=== PATIENT | female | born 1940 | race Caucasian/White ===

== ENCOUNTER 2021-01-06 11:45 | Inpatient (IN) | payer MEDICARE ==
[~2021-01-06] VITALS: Ht 160 cm; Wt 96.2 kg
[2021-01-06 13:25] LABS: BASOPHILS % 0.5 % (0.0-1.0); EOSINOPHILS # (AUTO) 0.1 (0.0-0.4); EOSINOPHILS % 2.5 % (0.0-6.0); HEMATOCRIT 29.4 % (34.2-44.1); HEMOGLOBIN 9.3 g/dL (12.0-16.0); LYMPHOCYTES # (AUTO) 0.8 (1.0-3.2); LYMPHOCYTES % 18.8 % (18.0-39.1); MEAN CORPUSCULAR HEMOGLOBIN 31.6 pg (28-32); MEAN CORPUSCULAR HGB CONC 31.6 g/dL (31-35); MONOCYTES # (AUTO) 0.3 (0.2-0.8); MONOCYTES % 7.8 % (4.4-11.3); NEUTROPHILS # (AUTO) 2.8 (2.1-6.9); NEUTROPHILS % 70.1 % (38.7-80.0); PLATELET COUNT 137 x10e3/uL (140-360); RED BLOOD COUNT 2.94 x10e6/uL (3.6-5.1)
[2021-01-06 14:00] LABS: ALBUMIN/GLOBULIN RATIO 0.8 (0.8-2.0); ANION GAP 18.5 mmol/L (8-16); CALCIUM 8.6 mg/dL (8.4-10.2); CREATININE, SERUM 4.65 mg/dL (0.57-1.11)
[2021-01-06 14:11] LABS: POTASSIUM 5.5 mmol/L (3.5-5.1)
[2021-01-06] MEDS ORDERED: CEFTRIAXONE SOD 1 GM in SODIUM CHLORIDE 0.9% 50ML 50 ML IV ONE (14:15)
[2021-01-06] MEDS ORDERED: CEFTRIAXONE SOD 1 GM/50 ML BAG IV ONE (14:15)
[2021-01-06 18:24] VITALS: BP 100/70
[2021-01-06 20:00] VITALS: BP 120/51
[2021-01-06] MEDS ORDERED: DEXTROSE 50% SYRINGE 50 ML IV PRN (20:15)
[2021-01-06] MEDS: HYDROMORPHONE 1MG/1ML INJ IV PRN (20:47)
[2021-01-06 21:00] VITALS: BP 120/51
[2021-01-06] MEDS: INSULIN LISPRO 100 UNIT/1 ML 3ML VIAL SQ SCH (21:00)
[2021-01-06] MEDS ORDERED: VITAMIN E400 UNI1 PO (22:49)
[2021-01-06] MEDS ORDERED: VESICARE5 MG PO (22:49)
[2021-01-06] MEDS ORDERED: DIOVAN160 MG PO (22:49)
[2021-01-06] MEDS ORDERED: ANORO ELLIPTA1 EACH PO (22:49)
[2021-01-06] MEDS ORDERED: ALLOPURINOL100 MG PO (22:49)
[2021-01-06] MEDS ORDERED: FOLIC ACID0.4 MG PO (22:49)
[2021-01-06] MEDS ORDERED: LIPITOR20 MG PO (22:49)
[2021-01-06] MEDS ORDERED: PANTOPRAZOLE SO40 MG PO (22:49)
[2021-01-06] MEDS ORDERED: LOSARTAN POTAS100 MG PO (22:49)
[2021-01-06] MEDS ORDERED: TRICOR145 MG PO (22:49)
[2021-01-06] MEDS ORDERED: BUMETANIDE1 MG PO (22:49)
[2021-01-06] MEDS ORDERED: VITAMIN D250 MC1 PO (22:49)
[2021-01-06] MEDS ORDERED: LOVAZA1 GM PO (22:49)
[2021-01-06] MEDS ORDERED: METOPROLOL TART25 MG PO (22:49)
[2021-01-06] MEDS ORDERED: JANUVIA50 MG PO (22:49)
[2021-01-06] MEDS ORDERED: ASPIRIN81 MG PO (22:49)
[2021-01-06] MEDS ORDERED: HEPARIN SO5000 UNIT4 SC (22:49)
[2021-01-06] MEDS ORDERED: KLOR-CON M2020 MEQ PO (22:49)
[2021-01-06] MEDS ORDERED: FUROSEMIDE40 MG PO (22:49)
[2021-01-06] MEDS ORDERED: ACETAMINOPHEN325 M1 PO (22:49)
[2021-01-06] MEDS ORDERED: COREG12.5 MG PO (22:49)
[2021-01-06] MEDS ORDERED: ISOSORBIDE MONO30 MG PO (22:49)
[2021-01-06] MEDS ORDERED: NEURONTIN300 MG PO (22:49)
[2021-01-06] MEDS ORDERED: DOXYCYCLINE HY100 MG PO (22:49)
[2021-01-06] MEDS ORDERED: SUCRALFATE1 GM PO (22:49)
[2021-01-06] MEDS ORDERED: ALBUTEROL2.5 MG/3 M INH (22:49)
[2021-01-06] MEDS ORDERED: CRESTOR20 MG PO (22:49)
[2021-01-07] VITALS: BP 101/55
[2021-01-07] MEDS ORDERED: VANCOMYCIN 1GM/NS 250 ML 250 ML IV SCH (04:45)
[2021-01-07] MEDS ORDERED: CEFEPIME 1GM/NS 0.9% 50 ML 50 ML IV SCH (04:45)
[2021-01-07] MEDS ORDERED: CEFEPIME HCL 1GM 1 GM in SODIUM CHLORIDE 0.9% 50ML 50 ML IV SCH (05:00)
[2021-01-07] MEDS ORDERED: SODIUM CHLORIDE 0.9% 250ML 250 ML ONE (05:14)
[2021-01-07 07:03] LABS: BASOPHILS % 0.4 % (0.0-1.0); EOSINOPHILS % 0.7 % (0.0-6.0); HEMATOCRIT 25.3 % (34.2-44.1); HEMOGLOBIN 7.9 g/dL (12.0-16.0); LYMPHOCYTES # (AUTO) 0.7 (1.0-3.2); LYMPHOCYTES % 15.9 % (18.0-39.1); MEAN CORPUSCULAR HEMOGLOBIN 31.2 pg (28-32); MEAN CORPUSCULAR HGB CONC 31.2 g/dL (31-35); MONOCYTES # (AUTO) 0.4 (0.2-0.8); MONOCYTES % 8.1 % (4.4-11.3); NEUTROPHILS # (AUTO) 3.3 (2.1-6.9); NEUTROPHILS % 74.7 % (38.7-80.0); PLATELET COUNT 109 x10e3/uL (140-360); RED BLOOD COUNT 2.53 x10e6/uL (3.6-5.1); RED CELL DISTRIBUTION WIDTH 13.8 % (11.7-14.4)
[2021-01-07 07:24] LABS: ANION GAP 18.5 mmol/L (8-16); CALCIUM 8.3 mg/dL (8.4-10.2); CREATININE, SERUM 4.5 mg/dL (0.57-1.11); POTASSIUM 5.5 mmol/L (3.5-5.1)
[2021-01-07] MEDS: INSULIN LISPRO 100 UNIT/1 ML 3ML VIAL SQ SCH ×4 (07:30→21:00)
[2021-01-07] MEDS: CARVEDILOL 12.5 MG TAB PO SCH ×2 (08:00→17:00)
[2021-01-07 08:32] VITALS: BP 93/47
[2021-01-07] MEDS ORDERED: GABAPENTIN 300 MG CAP PO SCH (11:00)
[2021-01-07] MEDS: PANTOPRAZOLE SOD 40 MG TABEC PO SCH (11:20)
[2021-01-07] MEDS: SOLIFENACIN SUCCINATE 5 MG TAB PO SCH (11:20)
[2021-01-07] MEDS: ALLOPURINOL 100 MG TAB PO SCH (11:20)
[2021-01-07] MEDS: ISOSORBIDE MONONITRATE 30 MG TAB CR PO SCH ×2 (11:20→17:00)
[2021-01-07] MEDS: HYDROMORPHONE 1MG/1ML INJ IV PRN ×2 (11:30→22:59)
[2021-01-07 11:50] VITALS: BP 97/42
[2021-01-07] MEDS ORDERED: CEFTRIAXONE SOD 1 GM/50 ML BAG IV SCH (14:00)
[2021-01-07] MEDS ORDERED: INSULIN REGULAR, HUMAN 100 UNIT/1 ML 3ML VIAL IV ONE (14:30)
[2021-01-07] MEDS ORDERED: DEXTROSE 50% SYRINGE 50 ML IV ONE (14:30)
[2021-01-07] MEDS ORDERED: LIDOCAINE HCL 1% LOCAL INJ 20 ML VIAL ONE (15:29)
[2021-01-07] MEDS ORDERED: HEPARIN SOD (PORCINE) 1000 UNIT/ML SDV ONE (16:07)
[2021-01-07 16:13] VITALS: BP 92/58
[2021-01-07] MEDS: CLINDAMYCIN 600MG / 50ML 50 ML IV SCH ×2 (18:14→23:07)
[2021-01-07] MEDS ORDERED: SODIUM CHLORIDE 0.9% 1000ML 1,000 ML ONE (18:48)
[2021-01-07 20:22] VITALS: BP 112/57
[2021-01-07] MEDS ORDERED: CEFTRIAXONE SOD 1 GM in SODIUM CHLORIDE 0.9% 50ML 50 ML IV SCH (21:00)
[2021-01-07] MEDS: ATORVASTATIN 20 MG TAB PO SCH (22:51)
[2021-01-07 23:35] VITALS: BP 112/57
[2021-01-08] VITALS (8 sets, daily range): BP systolic 83–131; BP diastolic 45–67
[2021-01-08] MEDS: HYDROMORPHONE 1MG/1ML INJ IV PRN (04:53)
[2021-01-08] MEDS: CLINDAMYCIN 600MG / 50ML 50 ML IV SCH ×4 (05:16→20:00)
[2021-01-08 06:57] LABS: ALBUMIN 2.5 g/dL (3.5-5.0); ALBUMIN/GLOBULIN RATIO 0.7 (0.8-2.0); ANION GAP 15.8 mmol/L (8-16); CALCIUM 8.2 mg/dL (8.4-10.2); CREATININE, SERUM 3.69 mg/dL (0.57-1.11); POTASSIUM 4.8 mmol/L (3.5-5.1)
[2021-01-08] MEDS: INSULIN LISPRO 100 UNIT/1 ML 3ML VIAL SQ SCH ×4 (07:30→20:28)
[2021-01-08] MEDS: CARVEDILOL 12.5 MG TAB PO SCH ×2 (08:00→17:00)
[2021-01-08] MEDS: SOLIFENACIN SUCCINATE 5 MG TAB PO SCH (09:00)
[2021-01-08] MEDS: ALLOPURINOL 100 MG TAB PO SCH (09:00)
[2021-01-08] MEDS: PANTOPRAZOLE SOD 40 MG TABEC PO SCH (09:00)
[2021-01-08] MEDS: ISOSORBIDE MONONITRATE 30 MG TAB CR PO SCH ×2 (09:00→17:00)
[2021-01-08] MEDS: BALSAM PERU/CASTOR OIL 60 GM OINT...G. TP SCH ×2 (09:51→13:29)
[2021-01-08] MEDS: GUAIFENESIN 200 MG/10 ML UDC PO PRN ×2 (10:30→17:47)
[2021-01-08] MEDS: ONDANSETRON HCL INJ 2MG/ML 2ML 2 MG/ML VIAL IV PRN (10:30)
[2021-01-08] MEDS ORDERED: EPOETIN ALFA-EPBX 10,000 UNIT/ML VIAL SC SCH (12:00)
[2021-01-08] MEDS ORDERED: SODIUM CHLORIDE 0.9% 1000ML 1,000 ML ONE (16:44)
[2021-01-08] MEDS: ATORVASTATIN 20 MG TAB PO SCH (21:00)
[2021-01-08] MEDS: HYDROCODONE/APAP 10MG-325MG TAB PO PRN (22:42)
[2021-01-09] VITALS (8 sets, daily range): BP systolic 79–116; BP diastolic 30–69
[2021-01-09] MEDS: CLINDAMYCIN 600MG / 50ML 50 ML IV SCH ×5 (00:57→23:37)
[2021-01-09] MEDS: HYDROCODONE/APAP 10MG-325MG TAB PO PRN ×2 (03:59→12:28)
[2021-01-09 06:35] LABS: BASOPHILS % 0.8 % (0.0-1.0); EOSINOPHILS # (AUTO) 0.1 (0.0-0.4); EOSINOPHILS % 2.3 % (0.0-6.0); HEMATOCRIT 26.3 % (34.2-44.1); HEMOGLOBIN 8.1 g/dL (12.0-16.0); LYMPHOCYTES # (AUTO) 0.5 (1.0-3.2); LYMPHOCYTES % 13.3 % (18.0-39.1); MEAN CORPUSCULAR HEMOGLOBIN 31.4 pg (28-32); MEAN CORPUSCULAR HGB CONC 30.8 g/dL (31-35); MEAN CORPUSCULAR VOLUME 101.9 fL (81-99); MONOCYTES # (AUTO) 0.4 (0.2-0.8); MONOCYTES % 9.8 % (4.4-11.3); NEUTROPHILS # (AUTO) 2.9 (2.1-6.9); NEUTROPHILS % 73.5 % (38.7-80.0); PLATELET COUNT 103 x10e3/uL (140-360); RED BLOOD COUNT 2.58 x10e6/uL (3.6-5.1); RED CELL DISTRIBUTION WIDTH 14.1 % (11.7-14.4)
[2021-01-09 06:57] LABS: ANION GAP 13.5 mmol/L (8-16); CALCIUM 8.2 mg/dL (8.4-10.2); CREATININE, SERUM 2.76 mg/dL (0.57-1.11); POTASSIUM 4.5 mmol/L (3.5-5.1)
[2021-01-09] MEDS: INSULIN LISPRO 100 UNIT/1 ML 3ML VIAL SQ SCH ×4 (07:30→20:35)
[2021-01-09] MEDS: CARVEDILOL 12.5 MG TAB PO SCH ×2 (08:00→15:58)
[2021-01-09] MEDS: ISOSORBIDE MONONITRATE 30 MG TAB CR PO SCH ×2 (09:00→15:58)
[2021-01-09] MEDS: BALSAM PERU/CASTOR OIL 60 GM OINT...G. TP SCH (09:04)
[2021-01-09] MEDS: GUAIFENESIN 200 MG/10 ML UDC PO PRN (09:27)
[2021-01-09] MEDS: ONDANSETRON HCL INJ 2MG/ML 2ML 2 MG/ML VIAL IV PRN (09:27)
[2021-01-09] MEDS: ALLOPURINOL 100 MG TAB PO SCH (09:28)
[2021-01-09] MEDS: PANTOPRAZOLE SOD 40 MG TABEC PO SCH (09:28)
[2021-01-09] MEDS: SOLIFENACIN SUCCINATE 5 MG TAB PO SCH (09:28)
[2021-01-09] MEDS ORDERED: SODIUM CHLORIDE 0.9% 1000ML 1,000 ML IV ONE (20:15)
[2021-01-09] MEDS ORDERED: SODIUM CHLORIDE 0.9% 1000ML 1,000 ML ONE (20:19)
[2021-01-09] MEDS: ATORVASTATIN 20 MG TAB PO SCH (20:28)
[2021-01-10] VITALS (8 sets, daily range): BP systolic 80–115; BP diastolic 38–72
[2021-01-10] MEDS: CLINDAMYCIN 600MG / 50ML 50 ML IV SCH ×3 (05:42→17:55)
[2021-01-10] MEDS: BALSAM PERU/CASTOR OIL 60 GM OINT...G. TP SCH (05:48)
[2021-01-10 05:54] LABS: BASOPHILS % 0.4 % (0.0-1.0); EOSINOPHILS # (AUTO) 0.2 (0.0-0.4); EOSINOPHILS % 5.3 % (0.0-6.0); HEMATOCRIT 26.9 % (34.2-44.1); HEMOGLOBIN 8.2 g/dL (12.0-16.0); LYMPHOCYTES # (AUTO) 0.8 (1.0-3.2); MEAN CORPUSCULAR HEMOGLOBIN 31.1 pg (28-32); MEAN CORPUSCULAR HGB CONC 30.5 g/dL (31-35); MEAN CORPUSCULAR VOLUME 101.9 fL (81-99); MONOCYTES # (AUTO) 0.4 (0.2-0.8); MONOCYTES % 9.1 % (4.4-11.3); NEUTROPHILS % 66.8 % (38.7-80.0); PLATELET COUNT 111 x10e3/uL (140-360); RED BLOOD COUNT 2.64 x10e6/uL (3.6-5.1); RED CELL DISTRIBUTION WIDTH 14.2 % (11.7-14.4)
[2021-01-10 06:21] LABS: ALBUMIN 2.4 g/dL (3.5-5.0); ALBUMIN/GLOBULIN RATIO 0.7 (0.8-2.0); CREATININE, SERUM 3.35 mg/dL (0.57-1.11); MAGNESIUM 1.9 MG/DL (1.3-2.1)
[2021-01-10] MEDS: INSULIN LISPRO 100 UNIT/1 ML 3ML VIAL SQ SCH ×4 (07:30→21:00)
[2021-01-10] MEDS: CARVEDILOL 12.5 MG TAB PO SCH ×2 (08:00→17:00)
[2021-01-10] MEDS: ISOSORBIDE MONONITRATE 30 MG TAB CR PO SCH ×2 (09:00→17:00)
[2021-01-10] MEDS: ALLOPURINOL 100 MG TAB PO SCH (09:14)
[2021-01-10] MEDS: SOLIFENACIN SUCCINATE 5 MG TAB PO SCH (09:14)
[2021-01-10] MEDS: PANTOPRAZOLE SOD 40 MG TABEC PO SCH (09:14)
[2021-01-10 12:46] LABS: CLARITY,URINE CLEAR (CLEAR); COLOR,URINE YELLOW (YELLOW); KETONES,URINE NEGATIVE (NEGATIVE); LEUKOCYTE ESTERASE ,URINE NEGATIVE (NEGATIVE); NITRITE,URINE NEGATIVE (NEGATIVE); PROTEIN,URINE DIPSTICK 1+ (NEGATIVE); URINE UROBILINOGEN 0.2 mg/dL (0.2 - 1)
[2021-01-10 13:00] LABS: BACTERIA,URINE FEW /HPF; EPITHELIAL CELLS,URINE MODERATE /LPF; WBC,URINE (MAN) 0-5 /HPF (0-5)
[2021-01-10] MEDS ORDERED: SODIUM CHLORIDE 0.9% 1000ML 2,000 ML ONE (13:55)
[2021-01-10 14:16] LABS: CREATININE,URINE RANDOM 177.5 mg/dL (47-110); TOTAL PROTEIN, URINE 44.1 mg/dL (1-14)
[2021-01-10] MEDS ORDERED: SODIUM CHLORIDE 0.9% 1000ML 2,000 ML IV PRN (14:30)
[2021-01-10] MEDS ORDERED: ALBUMIN 25% 12.5GM 0.25 GM/ML BTL IV PRN (14:30)
[2021-01-10] MEDS ORDERED: MANNITOL 25% 12.5GM/50 ML VIAL IV PRN ×2 (14:30→17:00)
[2021-01-10] MEDS ORDERED: SODIUM CHLORIDE 0.9% 250ML 500 ML IV PRN (14:30)
[2021-01-10] MEDS ORDERED: HEPARIN SOD (PORCINE) 1000 UNIT/ML SDV IV PRN (17:00)
[2021-01-10] MEDS ORDERED: SODIUM CHLORIDE 0.9% 250ML 750 ML IV PRN (17:00)
[2021-01-10] MEDS: HYDROMORPHONE 1MG/1ML INJ IV PRN ×2 (19:15→21:47)
[2021-01-10] MEDS: ATORVASTATIN 20 MG TAB PO SCH (21:45)
[2021-01-11] VITALS (8 sets, daily range): BP systolic 99–112; BP diastolic 41–56
[2021-01-11] MEDS: CLINDAMYCIN 600MG / 50ML 50 ML IV SCH ×5 (01:00→23:08)
[2021-01-11] MEDS: HYDROMORPHONE 1MG/1ML INJ IV PRN ×4 (01:05→23:07)
[2021-01-11 05:58] LABS: BASOPHILS % 0.7 % (0.0-1.0); EOSINOPHILS # (AUTO) 0.2 (0.0-0.4); EOSINOPHILS % 5.6 % (0.0-6.0); HEMATOCRIT 26.5 % (34.2-44.1); HEMOGLOBIN 8.1 g/dL (12.0-16.0); LYMPHOCYTES # (AUTO) 0.9 (1.0-3.2); LYMPHOCYTES % 21.6 % (18.0-39.1); MEAN CORPUSCULAR HEMOGLOBIN 31.4 pg (28-32); MEAN CORPUSCULAR HGB CONC 30.6 g/dL (31-35); MEAN CORPUSCULAR VOLUME 102.7 fL (81-99); MONOCYTES # (AUTO) 0.4 (0.2-0.8); MONOCYTES % 9.8 % (4.4-11.3); NEUTROPHILS # (AUTO) 2.5 (2.1-6.9); NEUTROPHILS % 61.6 % (38.7-80.0); PLATELET COUNT 105 x10e3/uL (140-360); RED BLOOD COUNT 2.58 x10e6/uL (3.6-5.1); RED CELL DISTRIBUTION WIDTH 14.2 % (11.7-14.4)
[2021-01-11 06:22] LABS: ALBUMIN 2.7 g/dL (3.5-5.0); ALBUMIN/GLOBULIN RATIO 0.8 (0.8-2.0); ANION GAP 14.6 mmol/L (8-16); CALCIUM 8.5 mg/dL (8.4-10.2); CREATININE, SERUM 2.44 mg/dL (0.57-1.11); POTASSIUM 4.6 mmol/L (3.5-5.1)
[2021-01-11] MEDS: INSULIN LISPRO 100 UNIT/1 ML 3ML VIAL SQ SCH ×4 (07:30→20:35)
[2021-01-11] MEDS: CARVEDILOL 12.5 MG TAB PO SCH ×2 (08:00→16:06)
[2021-01-11] MEDS: ISOSORBIDE MONONITRATE 30 MG TAB CR PO SCH ×2 (09:00→16:06)
[2021-01-11] MEDS: SOLIFENACIN SUCCINATE 5 MG TAB PO SCH (09:33)
[2021-01-11] MEDS: ALLOPURINOL 100 MG TAB PO SCH (09:33)
[2021-01-11] MEDS: PANTOPRAZOLE SOD 40 MG TABEC PO SCH (09:33)
[2021-01-11] MEDS: BALSAM PERU/CASTOR OIL 60 GM OINT...G. TP SCH (09:34)
[2021-01-11] MEDS: HYDROCODONE/APAP 10MG-325MG TAB PO PRN (14:02)
[2021-01-11] MEDS: ATORVASTATIN 20 MG TAB PO SCH (20:16)
[2021-01-12] VITALS (8 sets, daily range): BP systolic 96–121; BP diastolic 43–74
[2021-01-12] MEDS: HYDROMORPHONE 1MG/1ML INJ IV PRN ×2 (03:14→21:40)
[2021-01-12] MEDS ORDERED: DIPHENHYDRAMINE HCL INJ 50 MG/ML VIAL IV PRN (04:45)
[2021-01-12] MEDS: CLINDAMYCIN 600MG / 50ML 50 ML IV SCH ×3 (05:04→18:27)
[2021-01-12 05:21] LABS: EOSINOPHILS # (AUTO) 0.2 (0.0-0.4); EOSINOPHILS % 5.8 % (0.0-6.0); HEMATOCRIT 26.7 % (34.2-44.1); HEMOGLOBIN 8.3 g/dL (12.0-16.0); LYMPHOCYTES # (AUTO) 0.9 (1.0-3.2); LYMPHOCYTES % 20.4 % (18.0-39.1); MEAN CORPUSCULAR HEMOGLOBIN 31.4 pg (28-32); MEAN CORPUSCULAR HGB CONC 31.1 g/dL (31-35); MEAN CORPUSCULAR VOLUME 101.1 fL (81-99); MONOCYTES # (AUTO) 0.4 (0.2-0.8); MONOCYTES % 9.6 % (4.4-11.3); NEUTROPHILS # (AUTO) 2.6 (2.1-6.9); NEUTROPHILS % 62.5 % (38.7-80.0); PLATELET COUNT 106 x10e3/uL (140-360); RED BLOOD COUNT 2.64 x10e6/uL (3.6-5.1); RED CELL DISTRIBUTION WIDTH 14.3 % (11.7-14.4)
[2021-01-12 05:39] LABS: ALBUMIN 2.6 g/dL (3.5-5.0); ALBUMIN/GLOBULIN RATIO 0.8 (0.8-2.0); ANION GAP 14.8 mmol/L (8-16); CALCIUM 8.5 mg/dL (8.4-10.2); CREATININE, SERUM 2.81 mg/dL (0.57-1.11); POTASSIUM 4.8 mmol/L (3.5-5.1)
[2021-01-12] MEDS ORDERED: SODIUM CHLORIDE 0.9% 1000ML 2,000 ML ONE (07:17)
[2021-01-12] MEDS: INSULIN LISPRO 100 UNIT/1 ML 3ML VIAL SQ SCH ×4 (07:30→21:00)
[2021-01-12] MEDS: CARVEDILOL 12.5 MG TAB PO SCH ×2 (08:00→17:00)
[2021-01-12] MEDS: SOLIFENACIN SUCCINATE 5 MG TAB PO SCH (09:00)
[2021-01-12] MEDS: ALLOPURINOL 100 MG TAB PO SCH (09:00)
[2021-01-12] MEDS: PANTOPRAZOLE SOD 40 MG TABEC PO SCH (09:00)
[2021-01-12] MEDS: ISOSORBIDE MONONITRATE 30 MG TAB CR PO SCH ×2 (09:00→17:00)
[2021-01-12] MEDS: BALSAM PERU/CASTOR OIL 60 GM OINT...G. TP SCH (12:29)
[2021-01-12 13:59] LABS: INR 1.16; PROTHROMBIN TIME 15.5 seconds (11.9-14.5)
[2021-01-12] MEDS: HYDROCODONE/APAP 10MG-325MG TAB PO PRN (17:50)
[2021-01-12] MEDS: ATORVASTATIN 20 MG TAB PO SCH (21:37)
[2021-01-12] MEDS: ONDANSETRON HCL INJ 2MG/ML 2ML 2 MG/ML VIAL IV PRN (21:40)
[2021-01-13] VITALS (8 sets, daily range): BP systolic 96–109; BP diastolic 45–81
[2021-01-13] MEDS: CLINDAMYCIN 600MG / 50ML 50 ML IV SCH ×4 (05:37→17:01)
[2021-01-13 06:42] LABS: INR 1.15; PROTHROMBIN TIME 15.4 seconds (11.9-14.5)
[2021-01-13 06:47] LABS: ALBUMIN 2.5 g/dL (3.5-5.0); ALBUMIN/GLOBULIN RATIO 0.8 (0.8-2.0); ANION GAP 13.3 mmol/L (8-16); CALCIUM 8.3 mg/dL (8.4-10.2); CREATININE, SERUM 2.2 mg/dL (0.57-1.11); POTASSIUM 4.3 mmol/L (3.5-5.1)
[2021-01-13] MEDS: INSULIN LISPRO 100 UNIT/1 ML 3ML VIAL SQ SCH ×4 (07:30→20:29)
[2021-01-13] MEDS: ISOSORBIDE MONONITRATE 30 MG TAB CR PO SCH ×2 (09:00→16:48)
[2021-01-13] MEDS: PANTOPRAZOLE SOD 40 MG TABEC PO SCH (10:49)
[2021-01-13] MEDS: SOLIFENACIN SUCCINATE 5 MG TAB PO SCH (10:49)
[2021-01-13] MEDS: ALLOPURINOL 100 MG TAB PO SCH (10:49)
[2021-01-13] MEDS: CARVEDILOL 12.5 MG TAB PO SCH ×2 (10:50→16:48)
[2021-01-13] MEDS: BALSAM PERU/CASTOR OIL 60 GM OINT...G. TP SCH (10:54)
[2021-01-13] MEDS ORDERED: ONDANSETRON HCL 4 MG ORAL DISINTEGRATING TAB PO PRN (12:45)
[2021-01-13] MEDS ORDERED: SODIUM CHLORIDE 0.9% 250ML 250 ML ONE (12:56)
[2021-01-13] MEDS ORDERED: LIDOCAINE HCL 1% LOCAL INJ 20 ML VIAL ONE (13:07)
[2021-01-13] MEDS ORDERED: MIDAZOLAM HCL 2 MG/2 ML VIAL ONE (13:16)
[2021-01-13] MEDS ORDERED: FENTANYL CITRATE/PF 100MCG/2 ML INJ ONE (13:16)
[2021-01-13] MEDS ORDERED: HEPARIN SOD (PORCINE) 1000 UNIT/ML SDV ONE (13:16)
[2021-01-13] MEDS: HYDROCODONE/APAP 10MG-325MG TAB PO PRN (17:16)
[2021-01-13] MEDS ORDERED: HYDROMORPHONE 1MG/1ML INJ IV PRN (21:15)
[2021-01-13] MEDS: ATORVASTATIN 20 MG TAB PO SCH (21:21)
[2021-01-14] MEDS: CLINDAMYCIN 600MG / 50ML 50 ML IV SCH ×3 (00:42→12:43)
[2021-01-14] MEDS: GUAIFENESIN 200 MG/10 ML UDC PO PRN (00:42)
[2021-01-14 00:55] VITALS: BP 98/40
[2021-01-14 00:59] VITALS: BP 100/50
[2021-01-14 06:02] VITALS: BP 90/50
[2021-01-14 06:17] LABS: BASOPHILS % 0.5 % (0.0-1.0); EOSINOPHILS # (AUTO) 0.2 (0.0-0.4); EOSINOPHILS % 4.8 % (0.0-6.0); HEMATOCRIT 25.7 % (34.2-44.1); LYMPHOCYTES # (AUTO) 0.8 (1.0-3.2); MEAN CORPUSCULAR HEMOGLOBIN 31.7 pg (28-32); MEAN CORPUSCULAR HGB CONC 31.1 g/dL (31-35); MONOCYTES # (AUTO) 0.4 (0.2-0.8); MONOCYTES % 10.8 % (4.4-11.3); NEUTROPHILS # (AUTO) 2.6 (2.1-6.9); NEUTROPHILS % 64.4 % (38.7-80.0); PLATELET COUNT 100 x10e3/uL (140-360); RED BLOOD COUNT 2.52 x10e6/uL (3.6-5.1); RED CELL DISTRIBUTION WIDTH 14.4 % (11.7-14.4)
[2021-01-14] MEDS ORDERED: HYDROCODONE/APAP 10MG-325MG TAB PO PRN (06:30)
[2021-01-14 06:56] LABS: ALBUMIN 2.5 g/dL (3.5-5.0); ALBUMIN/GLOBULIN RATIO 0.7 (0.8-2.0); ANION GAP 12.5 mmol/L (8-16); CALCIUM 8.3 mg/dL (8.4-10.2); CREATININE, SERUM 2.75 mg/dL (0.57-1.11); MAGNESIUM 1.8 MG/DL (1.3-2.1); POTASSIUM 4.5 mmol/L (3.5-5.1)
[2021-01-14] MEDS: INSULIN LISPRO 100 UNIT/1 ML 3ML VIAL SQ SCH ×2 (07:30→11:30)
[2021-01-14] MEDS: CARVEDILOL 12.5 MG TAB PO SCH (08:00)
[2021-01-14 08:17] VITALS: BP 94/47
[2021-01-14] MEDS: ISOSORBIDE MONONITRATE 30 MG TAB CR PO SCH (09:00)
[2021-01-14] MEDS: ALLOPURINOL 100 MG TAB PO SCH (09:17)
[2021-01-14] MEDS: PANTOPRAZOLE SOD 40 MG TABEC PO SCH (09:17)
[2021-01-14] MEDS: SOLIFENACIN SUCCINATE 5 MG TAB PO SCH (09:17)
[2021-01-14 09:50] VITALS: BP 94/47
[2021-01-14] MEDS: BALSAM PERU/CASTOR OIL 60 GM OINT...G. TP SCH (12:39)
== END 2021-01-14 13:58 | DRG 579 ==
LOC: ER 12:30 → ERHOLD 14:14 → MED/SURG3 18:02
PROVIDERS: ADMIT Internal Medicine; ATTEND Internal Medicine
PROC: 02HV33Z Insertion of Infusion Device into Superior Vena Cava, Percutaneous Approach (ICD-10-PCS; principal; 2021-01-07)
PROC: B548ZZA Ultrasonography of Superior Vena Cava, Guidance (ICD-10-PCS; 2021-01-07)
PROC: 5A1D70Z Performance of Urinary Filtration, Intermittent, Less than 6 Hours Per Day (ICD-10-PCS; 2021-01-07)
PROC: 5A1D70Z Performance of Urinary Filtration, Intermittent, Less than 6 Hours Per Day (ICD-10-PCS; 2021-01-08)
PROC: 5A1D70Z Performance of Urinary Filtration, Intermittent, Less than 6 Hours Per Day (ICD-10-PCS; 2021-01-10)
PROC: 5A1D70Z Performance of Urinary Filtration, Intermittent, Less than 6 Hours Per Day (ICD-10-PCS; 2021-01-12)
PROC: 0JH63XZ Insertion of Tunneled Vascular Access Device into Chest Subcutaneous Tissue and Fascia, Percutaneous Approach (ICD-10-PCS; 2021-01-13)
PROC: 05PYX3Z Removal of Infusion Device from Upper Vein, External Approach (ICD-10-PCS; 2021-01-13)
PROC: 02HV33Z Insertion of Infusion Device into Superior Vena Cava, Percutaneous Approach (ICD-10-PCS; 2021-01-13)
PROC: B548ZZA Ultrasonography of Superior Vena Cava, Guidance (ICD-10-PCS; 2021-01-13)
DX: L03.115 Cellulitis of right lower limb (principal); N18.6 End stage renal disease; D61.818 Other pancytopenia; N17.9 Acute kidney failure, unspecified; E87.2 Acidosis; I12.0 Hypertensive chronic kidney disease with stage 5 chronic kidney disease or end stage renal disease; L97.821 Non-pressure chronic ulcer of other part of left lower leg limited to breakdown of skin; L97.811 Non-pressure chronic ulcer of other part of right lower leg limited to breakdown of skin; L03.116 Cellulitis of left lower limb; Z99.2 Dependence on renal dialysis; E87.5 Hyperkalemia; E87.70 Fluid overload, unspecified; Z66 Do not resuscitate; E66.01 Morbid (severe) obesity due to excess calories; Z68.37 Body mass index [BMI] 37.0-37.9, adult; E11.22 Type 2 diabetes mellitus with diabetic chronic kidney disease; I48.91 Unspecified atrial fibrillation; E78.5 Hyperlipidemia, unspecified; K21.9 Gastro-esophageal reflux disease without esophagitis; Z82.49 Family history of ischemic heart disease and other diseases of the circulatory system; Z88.5 Allergy status to narcotic agent; Z88.8 Allergy status to other drugs, medicaments and biological substances; E11.42 Type 2 diabetes mellitus with diabetic polyneuropathy; M10.9 Gout, unspecified; R53.83 Other fatigue; D64.9 Anemia, unspecified; Z20.822 Contact with and (suspected) exposure to COVID-19
CPT/HCPCS: 36415; 36556; 36558; 71045; 74470; 76770; 76937; 77001; 80048; 80053; 81001; 82570; 82948; 83605; 83735; 84156; 84484; 85025; 85610; 86705; 86706; 87040; 87340; 90962; 93005; 93970; 96360; 97139; 99251; 99284; C1752; C1769; C1892; J0692; J0696; J1170; J1200; J1644; J1817; J2001; J2150; J2250; J2405; J3010; J3370; J7030; J7050; J7799; U0002